=== PATIENT | male | born 1990 | race Caucasian/White ===

== ENCOUNTER 2017-08-11 23:28 | Emergency (ER) | payer SELFPAY ==
[2017-08-11 23:35] VITALS: BP 146/75; PULSE 89; TEMP 98; BMI 25.7
[2017-08-11] MEDS ORDERED: IBUPROFEN 600 MG TABLET (FP) PO ONE ×2 (23:45→23:46)
--- NOTE | 2017-08-14 01:38 | PDOC ---
History of Present Illness - General Chief Complaint: Injury Stated Complaint: INJURY TO LEFT HAMSTRING - History of Present Illness Initial Comments: This 26-year-old man with no significant past medical history is brought in via ambulance from his gym where he had mild discomfort in the posterior left thigh that began as he was sprinting. Earlier in the evening, he had mild discomfort in the same area. When he began to run, he heard a "pop" and felt pain in the proximal third of his posterior thigh. Patient did not fall or otherwise injure any other area of his body. Initially, he had severe pain, worsened with attempts at ambulation. He states that he saw no deformity in the thigh at any time. The initial pain improved somewhat but patient was unable to walk and EMS was called. No previous history of hamstring tear or other acute muscle /tendon injuries. Past History - Past Medical History Allergies/Adverse Reactions: Allergies Allergy/AdvReac Type Severity Reaction Status Date / Time No Known Allergies Allergy Verified 08/11/17 23:29 Home Medications: Ambulatory Orders NK [No Known Home Medication] 08/11/17 Other medical history: DENIES - Suicide/Smoking/Psychosocial Hx Smoking History: Never smoked Have you smoked in the past 12 months: No Information on smoking cessation initiated: No Hx Alcohol Use: Yes (OCCAS) Drug/Substance Use Hx: No Substance Use Type: None Review of Systems - Review of Systems Able to Perform ROS?: Yes Comments:: 12 point review of systems is negative except for what is noted in the history of present illness *Physical Exam - Vital Signs Last Vital Signs Temp Pulse Resp BP Pulse Ox 98 F 89 16 146/75 98 08/11/17 23:31 08/11/17 23:31 08/11/17 23:31 08/11/17 23:31 08/11/17 23:31 - Physical Exam Comments: GENERAL: Adult male, alert and oriented 3, in no acute distress HEAD: Normal with no signs of trauma. EYES: PERRLA, EOMI, sclera anicteric, conjunctiva clear. ENT: Ears normal, nares patent, oropharynx clear without exudates. Dry mucous membranes. NECK: Normal range of motion, supple without lymphadenopathy, JVD, or masses. LUNGS: Breath sounds equal, clear to auscultation bilaterally. No wheezes, and no crackles. HEART:Regular rate and rhythm, normal S1 and S2 without murmur, rub or gallop. ABDOMEN:.normal bowel sounds No guarding,tenderness or rebound.No masses No distention. EXTREMITIES: Right lower extremitymild tenderness, mild edema without deformity of posterior thigh Knee flexion intact but painful; no ecchymosis or masses present No hip/knee/lower leg pain or deformity Remainder of the extremity exam is normal NEUROLOGICAL: Cranial nerves II through XII grossly intact. Normal speech. No focal neurological deficits. MUSCULOSKELETAL: Back non-tender to palpation, no CVA tenderness SKIN: Warm, Dry, normal turgor, no rashes or lesions noted. ED Treatment Course - Medications Given in the ED: ED Medications Discontinued Medications Generic Name Dose Route Start Last Admin Trade Name Freq PRN Reason Stop Dose Admin Ibuprofen 600 mg 08/11/17 23:45 08/11/17 23:49 Motrin - PO 08/11/17 23:46 600 mg ONCE ONE Administration Progress Note - Progress Note Progress Note: Clinical presentation most consistent with right hamstring strain, possible partial tear. No evidence of complete tear or any bony injury present. Patient was offered Toradol IM but patient declined. Ibuprofen 600 mg by mouth administered. Patient given crutches for ambulation and crutch walking instruction given. Patient should ice the area as much as possible over the next 48 hours and elevate the leg Patient has an orthopedist and will follow-up with him within the next 48 hours. Meanwhile, patient given work documentation for the next 2 days. He will return to an ER if he has worsening pain prior to seeing his orthopedist. *DC/Admit/Observation/Transfer Diagnosis at time of Disposition: Hamstring strain - Discharge Dispostion Disposition: HOME Condition at time of disposition: Stable - Referrals - Patient Instructions Printed Discharge Instructions: Hamstrings Strain - Post Discharge Activity Forms/Work/School Notes: Back to Work
== END 2017-08-11 23:59 | disposition home or self-care (01) ==
LOC: FER 23:28
DX: M79.605 Pain in left leg (principal)
CPT/HCPCS: 99281-25